=== PATIENT | female | born 1960 | race Caucasian/White ===

== ENCOUNTER 2017-10-24 10:52 | Inpatient (IN) | payer SELFPAY ==
[~2017-10-24] VITALS: Ht 304.8 cm; Wt 94.8 kg
[2017-10-24] MEDS ORDERED: IPRATROPIUM BROMIDE (0.02%) 0.5MG/2.5ML NEB HHN STA (11:34)
[2017-10-24] MEDS ORDERED: METHYLPREDNISOLONE SOD SUCC 125 MG/2 ML VIAL IV STA (11:34)
[2017-10-24] MEDS ORDERED: ASPIRIN 81MG TABLET PO STA (11:34)
[2017-10-24] MEDS ORDERED: ALBUTEROL (0.083%) 2.5MG/3ML NEB HHN STA (11:34)
[2017-10-24 11:43] LABS: BASOPHILS % 0.6 % (0.0-2.0); EOSINOPHILS % 1.5 % (0.0-5.0); HEMATOCRIT. 44.9 % (36.0-48.0); HEMOGLOBIN. 15.7 g/dL (12.0-16.0); LYMPHOCYTES % 17.9 % (20.0-50.0); MEAN CORPUSCULAR HEMOGLOBIN 34.1 pg (28.0-32.0); MEAN CORPUSCULAR VOLUME 97.7 fL (81.0-99.0); MEAN PLATELET VOLUME 10.2 fl (7.4-10.4); MONOCYTES % 9.9 % (2.0-8.0); NEUTROPHILS % 70.1 % (40.0-76.0); PLATELET 113 x1000/uL (130-400)
[2017-10-24] MEDS ORDERED: OSELTAMIVIR 75MG CAPSULE PO ONE (11:45)
[2017-10-24] MEDS ORDERED: NITROGLYCERIN 0.4MG TABLET SL SL PRN (11:45)
[2017-10-24 11:50] LABS: CHLORIDE 103 mEq/L (98-107); INR 1.2; PROTHROMBIN TIME 12.1 sec (9.4-11.6)
[2017-10-24 13:50] LABS: D-DIMER 1.02 mg/L FEU (<0.50); PARTIAL THROMBOPLASTIN TIME 27.6 sec (23.4-31.0)
[2017-10-24] MEDS ORDERED: IOHEXOL-350 100 ML BOTTLE ONE (15:31)
[2017-10-24] MEDS ORDERED: ENOXAPARIN 40MG/0.4ML SYR SUBCUT SCH (20:15)
[2017-10-24] MEDS ORDERED: ACETAMINOPHEN 325MG TABLET PO PRN (20:15)
[2017-10-24] MEDS ORDERED: ONDANSETRON HCL 4MG/2ML VIAL IV PRN (20:15)
[2017-10-24] MEDS ORDERED: MAGNESIUM/ALUMINUM HYDROXIDE/SIMETHICONE 30ML UDC PO PRN (20:15)
[2017-10-24] MEDS ORDERED: DIPHENHYDRAMINE 50MG/ML VIAL IV PRN (20:15)
[2017-10-24] MEDS ORDERED: IPRATROPIUM/ALBUTEROL 0.5-3(2.5)MG/3ML NEB INH PRN (20:15)
[2017-10-24 22:45] VITALS: BP 131/53
[2017-10-24] MEDS: SODIUM CHLORIDE 0.9% INJ 3ML FLUSH IVF SCH (23:14)
[2017-10-24] MEDS: METHYLPREDNISOLONE SOD SUCC 125 MG/2 ML VIAL IV SCH (23:14)
[2017-10-24] MEDS ORDERED: TEMAZEPAM 15MG CAPSULE PO PRN (23:15)
[2017-10-25] VITALS: BP 134/63
[2017-10-25] MEDS: IPRATROPIUM/ALBUTEROL 0.5-3(2.5)MG/3ML NEB HHN SCH ×4 (01:11→20:20)
[2017-10-25 04:00] VITALS: BP 128/59
[2017-10-25] MEDS: SODIUM CHLORIDE 0.9% INJ 3ML FLUSH IVF SCH ×3 (05:39→21:09)
[2017-10-25] MEDS: METHYLPREDNISOLONE SOD SUCC 125 MG/2 ML VIAL IV SCH (05:39)
[2017-10-25 07:49] VITALS: BP 146/61
[2017-10-25] MEDS: GUAIFENESIN 600MG ER TABLET PO SCH ×2 (08:11→21:09)
[2017-10-25] MEDS: AZITHROMYCIN 500 MG TABLET PO SCH (08:11)
[2017-10-25] MEDS: ENOXAPARIN 40MG/0.4ML SYR SUBCUT SCH ×2 (08:12→21:10)
[2017-10-25] MEDS ORDERED: IPRATROPIUM/ALBUTEROL 0.5-3(2.5)MG/3ML NEB HHN PRN (10:00)
[2017-10-25] MEDS: METHYLPREDNISOLONE SOD SUCC 40 MG/ML VIAL IV SCH ×2 (10:20→17:56)
[2017-10-25 10:37] LABS: BG BASE EXCESS 0.8 mmol/L (-2.0-2.0); BG CARBOXYHEMOGLOBIN 0.4 % (0.5-1.5); BG DEOXYHEMOGLOBIN 4.7 % (0.0-5.0); BG HCO3 ACT 25.2 mmol/L (22.0-26.0); BG METHEMOGLOBIN 0.3 % (0.0-1.5); BG OXYGEN SATURATION 95.3 % (92.0-98.5); BG OXYHEMOGLOBIN 94.6 % (94.0-97.0); BG PCO2 39.7 mmHg (35.0-45.0); BG PO2 76.8 mmHg (75.0-100.0); BG SAMPLE SITE RIGHT BRACHIAL; BG TOTAL HEMOGLOBIN 15.2 g/dL (12.0-18.0); BG VENT MODE NASAL CANNULA
[2017-10-25 11:43] VITALS: BP 148/56
[2017-10-25] MEDS ORDERED: INFLUENZA VIRUS VACCINE 0.5ML SYR IM ONE (12:00)
[2017-10-25 16:06] VITALS: BP 136/61
[2017-10-25 20:00] VITALS: BP 127/55
[2017-10-25] MEDS: BUDESONIDE 0.5MG/2ML NEB HHN SCH (20:20)
[2017-10-26] VITALS: BP 113/49
[2017-10-26] MEDS: IPRATROPIUM/ALBUTEROL 0.5-3(2.5)MG/3ML NEB HHN SCH ×4 (00:13→13:49)
[2017-10-26] MEDS: METHYLPREDNISOLONE SOD SUCC 40 MG/ML VIAL IV SCH ×2 (02:05→09:39)
[2017-10-26 04:00] VITALS: BP 123/66
[2017-10-26] MEDS: SODIUM CHLORIDE 0.9% INJ 3ML FLUSH IVF SCH ×2 (05:46→13:39)
[2017-10-26 08:00] VITALS: BP 122/67
[2017-10-26] MEDS: AZITHROMYCIN 500 MG TABLET PO SCH (08:07)
[2017-10-26] MEDS: ENOXAPARIN 40MG/0.4ML SYR SUBCUT SCH (08:18)
[2017-10-26] MEDS: GUAIFENESIN 600MG ER TABLET PO SCH (08:18)
[2017-10-26 09:00] LABS: BG BASE EXCESS 0.7 mmol/L (-2.0-2.0); BG CARBOXYHEMOGLOBIN 0.6 % (0.5-1.5); BG DEOXYHEMOGLOBIN 7.2 % (0.0-5.0); BG FRACTION INSPIRED OXYGEN 21; BG HCO3 ACT 24.2 mmol/L (22.0-26.0); BG METHEMOGLOBIN 0.3 % (0.0-1.5); BG OXYGEN SATURATION 92.7 % (92.0-98.5); BG OXYHEMOGLOBIN 91.9 % (94.0-97.0); BG PCO2 35.9 mmHg (35.0-45.0); BG PH 7.447 (7.350-7.450); BG PO2 64.5 mmHg (75.0-100.0); BG SAMPLE SITE LEFT RADIAL; BG VENT MODE ROOM AIR
[2017-10-26] MEDS: BUDESONIDE 0.5MG/2ML NEB HHN SCH (09:22)
[2017-10-26 12:00] VITALS: BP 122/58
[2017-10-26 16:00] VITALS: BP 128/54
[2017-10-27] MEDS ORDERED: PREDNISONE 20MG TABLET PO SCH (09:00)
== END 2017-10-26 18:00 | disposition home or self-care (01) | DRG 144 ==
LOC: ER 10:52 → 8WST 14:30 → EDBEDREQ 14:40 → ENRESERV 20:15
PROVIDERS: ADMIT Internal Medicine; ATTEND Internal Medicine
DX: J20.9 Acute bronchitis, unspecified (principal); J96.01 Acute respiratory failure with hypoxia; D69.6 Thrombocytopenia, unspecified; E66.9 Obesity, unspecified; R79.1 Abnormal coagulation profile; Z68.1 Body mass index [BMI] 19.9 or less, adult; Z87.891 Personal history of nicotine dependence; Z79.899 Other long term (current) drug therapy; I10 Essential (primary) hypertension
CPT/HCPCS: 36415; 36600; 71045; 71275; 80053; 82375; 82805; 83605; 83690; 83880; 84484; 85025; 85379; 85610; 85730; 87040; 87804; 93005; 93306; 94640; 94644; J1650; J2920; J2930; J7611; J7620; J7626; Q9967; A4315